=== PATIENT | female | born 1975 | race Caucasian/White ===

== ENCOUNTER → 2019-12-07 14:44 | Outpatient (CLI) | payer OTHER, SELFPAY ==
--- NOTE | ~2019-12-07 | MR_ITS ---
EXAMINATION: MR cervical spine wo/w con DATE: 12/07/2019 15:49 INDICATION: Cervical radiculopathy. TECHNIQUE: Magnetic resonance imaging (MRI) of the cervical spine was performed without and with 12 m L MultiHance intravenous contrast. Sequences included sagittal and axial T2-weighted FSE, sagittal T2 -weighted FS FSE, and sagittal and axial T1-weighted FSE. Postcontrast sequences included sagittal an d axial T1-weighted FS FSE. COMPARISON: None FINDINGS: There is mild kyphosis of lower cervical spine. There is 6 degrees dextrocurvature of cervi eddie spine. Vertebral body heights and intervertebral disc heights are normal. The spinal cord signal intensity is normal. The following disc levels are specifically discussed: C2-C3: The disc does not extend beyond the endplate margin. There is no uncovertebral joint osteoarth ritis. There is mild left facet joint osteoarthritis. There is no neural foraminal stenosis. There is no central canal stenosis. C3-C4: The disc does not extend beyond the endplate margin. There is no uncovertebral joint osteoarth ritis. There is mild bilateral facet joint osteoarthritis. There is no neural foraminal stenosis. The re is no central canal stenosis. C4-C5: The disc does not extend beyond the endplate margin. There is no uncovertebral joint osteoarth ritis. There is mild bilateral facet joint osteoarthritis. There is no neural foraminal stenosis. The re is no central canal stenosis. C5-C6: The disc is bulging. There is mild bilateral uncovertebral joint osteoarthritis. There is mild right facet joint osteoarthritis. There is no neural foraminal stenosis. There is mild central canal stenosis with ventral indentation of spinal cord. C6-C7: The disc is bulging. There is mild bilateral uncovertebral joint osteoarthritis. There is no f acet joint osteoarthritis. There is mild right neural foraminal stenosis. There is mild central canal stenosis with ventral indentation of spinal cord. C7-T1: The disc does not extend beyond the endplate margin. There is no uncovertebral joint osteoarth ritis. There is mild bilateral facet joint osteoarthritis. There is no neural foraminal stenosis. The re is no central canal stenosis. IMPRESSION: 1. Mild cervical spondylosis. Reviewed, dictated and finalized at location A. LE TIER
== END ==
PROVIDERS: PCP Family Medicine; Visit Provider Family Medicine
DX: M47.22 Other spondylosis with radiculopathy, cervical region (principal)
CPT/HCPCS: 72156; A9577

== ENCOUNTER 2021-01-23 07:32 | Outpatient (CLI) | payer SELFPAY ==
--- NOTE | ~2021-01-23 | MM_ITS ---
EXAMINATION: MM screening gisselle BI w juliocesar HISTORY: Screening mammogram TECHNIQUE: Craniocaudal and mediolateral oblique 3-D tomosynthesis images were obtained and synthetic 2-D images were generated. CAD analysis was submitted and interpreted. COMPARISON: No prior mammogram is available for comparison at this institution. BREAST PARENCHYMAL COMPOSITION: There are scattered areas of fibroglandular density. FINDINGS: There is fibroglandular asymmetry. There is an asymmetric 1.3 cm area of density in the anterior upper inner right breast. Diagnostic ri ght mammogram and right breast ultrasound examination are recommended. Otherwise there is no evidence of suspicious mass, calcification, or architectural distortion to sugg est malignancy in either breast. There has been no suspicious interval change. IMPRESSION: 1. Asymmetric 13 mm density in anterior upper inner right breast 2. Diagnostic right mammogram and right breast ultrasound examination are recommended. BI-RADS Category 0: Incomplete: Needs additional imaging evaluation. Reviewed, dictated and finalized at location B. IMPRESSION: 1. Asymmetric 13 mm density in anterior upper inner right breast 2. Diagnostic right mammogram and right breast ultrasound examination are recom mended. BI-RADS Category 0: Incomplete: Needs additional imaging evaluation.
== END 2021-01-23 07:33 | disposition home or self-care (01) ==
LOC: ANHIMG 07:35
PROVIDERS: PCP Family Medicine; Visit Provider Obstetrics & Gynecology
DX: Z12.31 Encounter for screening mammogram for malignant neoplasm of breast (principal); R92.8 Other abnormal and inconclusive findings on diagnostic imaging of breast
CPT/HCPCS: 77063; 77067

== ENCOUNTER 2021-01-30 12:45 | Outpatient (CLI) | payer OTHER, SELFPAY ==
--- NOTE | ~2021-01-30 | MMUS_ITS ---
EXAMINATION: MM diagnostic mammo unilat RT, US breast RT limited HISTORY: Possible right breast mass on screening mammogram TECHNIQUE: Additional 3-D tomosynthesis images of the right breast were performed and synthetic 2-D i mages were generated. CAD analysis was submitted and interpreted. High resolution limited by breast u ltrasound was performed. COMPARISON: 01/23/2021 FINDINGS: MAMMOGRAPHIC FINDINGS: There is an approximately 1.9 x 1.5 cm oval, equal density mass with indistinct margins at the 1:00 l ocation in the anterior third of the breast 4 cm from the nipple. ULTRASOUND: There is a 1.6 x 0.8 cm oval, parallel, hypoechoic mass with peripheral vascularity and no posterior features at the 12:00 location near the nipple. IMPRESSION: 1. Suspicious right breast mass. 2. Ultrasound-guided biopsy is recommended. BI-RADS category 4, suspicious findings. Reviewed, dictated and finalized at location A. IMPRESSION: 1. Suspicious right breast mass. 2. Ultrasound-guided biopsy is recommended. BI-RADS category 4, suspicious findings.
== END 2021-01-30 12:46 | disposition home or self-care (01) ==
LOC: ANHIMG 12:46
PROVIDERS: PCP Family Medicine; Visit Provider Obstetrics & Gynecology
DX: R92.8 Other abnormal and inconclusive findings on diagnostic imaging of breast (principal)
CPT/HCPCS: 76642; 77065

== ENCOUNTER 2023-01-31 09:00 | Outpatient (RCR) | payer SELFPAY ==
--- NOTE | 2023-01-03 10:43 | PTOPEVAL1 ---
Assessment and note entered by Kenn Camargo, PT, DPT Evaluation Information Assessment Status Evaluation Diagnosis cervical radiculopathy Onset 2 months Subjective Information Pt states for the last couple of years she has been getting numbness in her hands and feet but has been mild. She states a few months ago she woke up and had a lot of altered sensations including numbness in her index and middle fingers , muscle soreness in her forearm, and a stabbing pain under her L shoulder blade. She states it is difficult to fall asleep and her neck also hurts when she is sitting for long. Reported Pain Level Pain Score 5: Self Report Assessment PT Clinical Summary Pastora presents to therapy today for her initial evaluation with a diagnosis of cervical radiculopathy. Today she demonstrates minor decreases in her active cervical ROM that is mainly limited by pain. She demonstrates shoulder ROM and strength that is WNL. She demonstrates altered sensation with radicular symptoms down the C6 and C7 nerve root. Skilled physical therapy services are indicated to address the deficits noted above, to manage pain, and to improve functional mobility. Plan of Care Interventions Electrical Stimulation,Hot Pack/Cold Pack,Manual Therapy,Mechanical Traction,Neuro Re-education, Patient/Caregiver Educati,Therapeutic Activities, Therapeutic Exercise PT Services Indicated Yes Treatment Frequency and 2x/wk for 4 wks Duration These treatments will address the objective and functional deficits as defined above. The patient will be advanced safely and appropriately in order for the patient to progress towards his/her prior level of function. Additional exercises will be introduced and as well as a comprehensive home exercise program upon discharge, if needed, ?to ensure carryover of functional gains achieved in the clinic. This treatment plan has been reviewed and agreement upon by the patient.
--- NOTE | 2023-01-31 09:48 | PTOPDC ---
Assessment and note entered by Kenn Camargo, PT, DPT Evaluation Information Assessment Status Discharge Diagnosis cervical radiculopathy Onset 2 months Subjective Information Pt states overall she is doing much better. She states the numbness in her middle finger is completely gone and the numbness in her index finger is 98% better . She states the stabbing pain in her L shoulder blade is almost completely gone. She states she feels like she would have progressed even sooner if it not for her other family conflicts. She states she can also drive now without any pain. Reported Pain Level Pain Score 1: Self Report Assessment PT Clinical Summary Pastora presents to therapy today for her progress report following 8 visits of skilled therapy to treat her cervical radiculopathy. Today she demonstrates improve active cervical ROM in all directions and does not reports an increase in pain at end range. She reports no functional limitations at this time and has met or progressed well towards her therapy goals. She no longer required skilled therapy services and will be discharged at this time with instructions to continue her HEP upon discharge and to follow up with her referring provider if new symptoms occur. Plan of Care Interventions Electrical Stimulation,Hot Pack/Cold Pack,Manual Therapy,Mechanical Traction,Neuro Re-education, Patient/Caregiver Educati,Therapeutic Activities, Therapeutic Exercise PT Services Indicated No Treatment Frequency and to be discharged Duration
== END 2023-01-31 13:55 | disposition home or self-care (01) ==
LOC: ANHGOSHPT 09:00
PROVIDERS: PCP Family Medicine; Visit Provider Family Medicine
DX: M54.12 Radiculopathy, cervical region (principal)
CPT/HCPCS: 97012; 97110; 97112; 97140; 97161; 97530

== ENCOUNTER 2025-10-11 14:56 | Outpatient (CLI) | payer SELFPAY ==
--- NOTE | ~2025-10-11 | US_ITS ---
EXAMINATION: US pelvic complete w TV, 10/11/2025 15:19 SIGN PAINTER HISTORY: R10.2 - Pelvic and perineal pain Comparison: None Technique: Cantu-scale and color Doppler images were obtained. Findings: Uterus: Uterus anteverted 7.5 x 4.2 x 4.8 cm. . Endometrium 4.5 mm. Within the endometrium in the cervical canal there are areas of increased echogenicity too small to characterize possibly blood products, follow-up suggested to assess stability or resolution. Right Ovary:Right ovary 2.8 x 1.5 x 1.9 cm, no adnexal mass, normal flow. Left Ovary: Left ovary 2.7 x 1.4 x 2 cm, no adnexal mass, normal flow. Free Fluid: None Impression: No etiology to explain the patient's pain Reviewed, dictated and finalized at location P. PAINTER Impression: No etiology to explain the patient's pain
== END 2025-10-11 14:57 | disposition home or self-care (01) ==
PROVIDERS: PCP Family Medicine; Visit Provider Nurse Practitioner Obstetrics & Gynecology
DX: R10.20 Pelvic and perineal pain unspecified side (principal)
CPT/HCPCS: 76830; 76856

== ENCOUNTER 2025-10-15 08:55 | Outpatient (CLI) | payer SELFPAY ==
--- NOTE | 2025-10-15 09:10 | ECHO_ITS ---
Patient Info Name: Pastora Cagle Age: 49 years : 1975 Gender: Female Ht: 65 in Wt: 149 lbs BSA: 1.77 m2 HR: 79 bpm BP: 129 / 81 mmHg Technical Quality: Fair Exam Date: 10/15/2025 9:16 AM Patient Status: O Admit Date: 10/15/2025 Exam Type: CA echo doppler color flow Complete two-dimensional, color flow and Doppler transthoracic echocardiogram is performed. Tying Machine Operator: Sharyn Singh Attending Provider: Josh Driver Summary 1. Complete two-dimensional, color flow and Doppler transthoracic echocardiogram is performed. 2. Left ventricular chamber dimension is normal. 3. Left ventricular systolic function is normal, estimated at 60-65. 4. The left ventricular diastolic function is normal. 5. E/e' 7 is not elevated. 6. The aortic valve is possibly bicuspid. 7. There is trace mitral valve regurgitation. Left Ventricle E/e' 7 is not elevated. Left ventricular chamber dimension is normal. Left ventricular systolic function is normal, estimated at 60-65. The left ventricular diastolic function is normal. Right Ventricle Right ventricular chamber dimension is normal. Right ventricular systolic function is normal. Left Atria Left atrial chamber dimension is normal. Right Atria Right atrial chamber dimension is normal. Aortic Valve The aortic valve is possibly bicuspid. There is no aortic valve stenosis. There is no aortic valve regurgitation. Pulmonic Valve There is no pulmonic regurgitation. Mitral Valve There is no mitral valve stenosis. There is trace mitral valve regurgitation. Tricuspid Valve There is no tricuspid valve regurgitation. Pericardium/Pleural There is no pericardial effusion. Inferior Vena Cava Normal inferior vena cava with >50% collapse upon inspiration consistent with normal right atrial pressure, 5 mmHg. Aorta The aortic root size at the sinus of Valsalva is normal. Left Ventricular Outflow Tract Name Value Normal LVOT 2D LVOT Diameter 1.9 cm LVOT Doppler LVOT Peak Velocity 89 cm/s LVOT Peak Gradient 3 mmHg LVOT Mean Gradient 2 mmHg LVOT VTI 20 cm LVOT VTI/AV VTI Ratio 0.7 LVOT Stroke Volume 53 ml LVOT CO 3.9 l/min LVOT CI 2.2 l/min/m2 Mitral Valve Name Value Normal MV Diastolic Function MV E Peak Velocity 81 cm/s MV A Peak Velocity 80 cm/s MV E/A 1.0 MV Decel Time (PW) 168 ms Tricuspid Valve Name Value Normal Estimated PAP/RSVP RA Pressure 5 mmHg <=5 Aorta Name Value Normal Ascending Aorta Ao Root Diameter (MM) 3.0 cm Ao Root Diam Index (MM) 1.7 cm/m2 Aortic Valve Name Value Normal AV 2D/MM AV Area (Planimetry) 2.5 cm2 AV Doppler AV Peak Velocity 126 cm/s AV Peak Gradient 6 mmHg AV Mean Gradient 4 mmHg AV VTI 26 cm AV Area (Cont Eq VTI) 2.0 cm2 >=3.0 AV Area (Cont Eq Obie) 1.9 cm2 AV DI (Obie) 0.70 AV Regurgitation 2D LVOT Area 2.7 cm2 Ventricles Name Value Normal LV Dimensions 2D/MM IVS Diastolic Thickness (2D) 0.6 cm 0.6-1.0 LVID Diastole (2D) 4.3 cm 3.8-5.2 LVIW Diastolic Thickness (2D) 0.8 cm 0.6-0.9 LVID Systole (2D) 2.8 cm 2.2-3.5 LVOT Diameter 1.9 cm LV Mass (2D Cubed) 90.76 g 67.00-162.00 LV Mass Index (2D Cubed) 51 g/m2 43-95 Relative Wall Thickness (2D) 0.38 <=0.42 LV Fractional Shortening/Ejection Fraction 2D/MM LV Fractional Shortening (2D) 35 % 27-45 LV EF (2D Teichholz) 65 % LV Diastolic Volume (4C MOD) 62 ml LV EF (4C MOD) 66 % LV Diastolic Volume (2C MOD) 68 ml LV EF (2C MOD) 68 % LV Diastolic Volume (BP MOD) 66 ml 46-106 LV Diastolic Volume Index (BP MOD) 37 ml/m2 29-61 LV Systolic Volume (BP MOD) 23 ml 14-42 LV Systolic Volume Index (BP MOD) 13 ml/m2 8-24 LV EF (BP MOD) 65 % 54-74 LV Diastolic Length (4C) 8.0 cm LV Systolic Length (4C) 6.5 cm LV Stroke Volume (4C MOD) 41 ml Atria Name Value Normal LA Dimensions LA Dimension (MM) 3.2 cm 2.7-3.8 LA Volume (4C A-L) 23 ml LA Volume (BP A-L) 28 ml RA Dimensions RA Systolic Major [place] Length (4C) 4.0 cm 2.2-2.8 RA Area (4C) 8.9 cm2 <=18.0 Report Signatures
== END 2025-10-15 08:56 | disposition home or self-care (01) ==
PROVIDERS: PCP Family Medicine; Visit Provider Student in an Organized Health Care Education/Training Program
DX: R93.1 Abnormal findings on diagnostic imaging of heart and coronary circulation (principal); R07.9 Chest pain, unspecified; Z82.79 Family history of other congenital malformations, deformations and chromosomal abnormalities
CPT/HCPCS: 93306